=== PATIENT | male | born 1970 ===

== ENCOUNTER → 2019-05-12 06:46 | Day surgery (SDC) | payer OTHER ==
[~2019-05-12 06:46] MED LIST: Acetaminophen TAB* 325 MG PO PRN; Betamethasone INJ* 6 MG/ML 5 ML VIAL (30 MG) ONE; Buffered Lidocaine 1% SYRIN* 1 ML/SYRINGE INTRADERM ONE; Bupivacaine 0.25% SDV PF* 10 ML VIAL INJ ONE; Bupivacaine 0.25% SDV* 30 ML ONE; DiMENhydriNATE IV* 50 MG/ML VIAL IV PUSH PRN; Famotidine IV* 10 MG/ML 2 ML (20 mg) ONE; HYDROcodone/ACETAMIN 5-325 MG* 1 TAB PO PRN; Lactated Ringers 1000 ML Bag* 1,000 ML IV SCH; Midazolam* 1 MG/ML 2 ML VIAL (2 MG) ONE; Naloxone* 0.4 MG/ML 1 ML VIAL IV PRN; Ondansetron INJ* 2 MG/ML VIAL IV PRN; ceFAZolin 2 GM in NS PREMIX(*) 2 GM/100 ML BAG IVPB ONE; ceFAZolin VIAL(*) VIAL ONE; diPHENhydraMINE IV* 50 MG/ML 1 ml VIAL (BENADRYL) IV PRN; fentaNYL* 50 MCG/ML 2 ML VIAL (100 MCG VIAL) ONE
[2019-05-12 10:29] VITALS: BP 139/89
--- NOTE | 2019-05-12 16:35 | OP ---
DATE OF OPERATION: 05/12/19 - [facility] DATE OF : 70 SURGEON: Rich Choudhury MD. HEARING AID REPAIR TECHNICIAN: BRUNILDA Sanderson. An placement assistant was needed for the entirety of the procedure to aid in positioning of the arm and retraction. ANESTHESIOLOGIST: Dr. Oliveros. ANESTHESIA: General. PRE-OP DIAGNOSIS: Right hand severe extensor tenosynovitis, predominantly at the fourth dorsal compartment. POST-OP DIAGNOSES: 1. Right hand fourth dorsal compartment extensor tenosynovitis. 2. Right extensor indicis proprius tendon rupture. OPERATIVE PROCEDURE: 1. Full tenosynovectomy of the wrist and hand of the right fourth dorsal compartment tendons. 2. Tendon transfer of the right extensor indicis proprius to extensor digitorum communis tendons on the dorsum of the hand. INDICATIONS: Seth has lot of tenosynovitis, has no rheumatologic diagnosis to explain this. We talked about risks and benefits. Given the amount of the tenosynovitis, the irritation and the pain that he is having associated with it , I did recommend a tenosynovectomy and I told him we will send it to test the tissue excised. ESTIMATED BLOOD LOSS: 5 mL. COMPLICATIONS: None. FINDINGS: See above and below. DESCRIPTION OF PROCEDURE: Seth was seen in the preoperative holding area. The correct site, side, and procedure were identified. We came back to the operating room where the arm was prepped and draped in the usual fashion. A time-out was performed. The arm was exsanguinated with the Esmarch and the tourniquet was inflated to 250 mmHg. I went ahead and made a longitudinal incision over the dorsum of the wrist in line with the third metacarpal and just ulnar to the Ester's tubercle. Dissection was carried down and full-thickness flaps were raised off the large amount of tenosynovitis that was present over the extensor tendons. On the dorsum of the hand, immediately seen was a ruptured EIP tendon sitting in the middle of all that tenosynovitis that was dissected free. It took some time, but I was able to strip all of the tendons of the tenosynovitis to take it right back to the dorsum of the right hand and I was able to incise the distal portion of the extensor retinaculum and excise all of the tenosynovitis that was under the retinaculum as well. Second and fifth compartments actually did not look like they really had that much tenosynovitis and it was mostly just the fourth dorsal compartment. After performing a full tenosynovectomy which took quite some time, I went ahead and the specimen and sent some of it for cultures including aerobic, anaerobic, fungal, and mycobacterial cultures. I also sent some for permanent pathology. I went ahead and lastly weaved using the tendon ritter the EIP tendon into the EDC tendon of the middle finger. Appropriate tension was set and the tendon transfer was tied down with multiple 3-0 Ethibond sutures. There was a very nice weave, fingers were sitting in a very nice cascade, everything was looking very good and very clean. We went ahead and irrigated out the wound. I went ahead and placed 12 mg of betamethasone all about the tendons. Skin was closed with 4-0 nylon suture. Some Marcaine was infiltrated about the area. The wound was dressed with Xeroform, 4x4, sterile Webril, and then a wrist splint was applied out to the level of the MP joints. Tourniquet was deflated and he was taken to the recovery room in stable condition. [id number]/CPS #: [id number] GILL
== END | disposition home or self-care (01) ==
LOC: OREAST 06:46
PROVIDERS: ATTEND Orthopaedic Surgery Hand Surgery
DX: M66.241 Spontaneous rupture of extensor tendons, right hand (principal); M65.841 Other synovitis and tenosynovitis, right hand; E11.9 Type 2 diabetes mellitus without complications; Z79.84 Long term (current) use of oral hypoglycemic drugs; I10 Essential (primary) hypertension; E78.5 Hyperlipidemia, unspecified
CPT/HCPCS: 87070; 87073; 87102; 87116; 87205; 87206; 88304; J0690; J0702; J2250; J3010; J3490